=== PATIENT | male | born 1960 | race Caucasian/White ===

== ENCOUNTER 2018-03-13 08:28 | Emergency (ER) | payer BC ==
[~2018-03-13 08:28] MED LIST: ASPI-757 PO; CEPH500T7 PO; HYDR-4309 PO; SULF-198 PO; TOBR5DRO43 OP
--- NOTE | 2018-03-13 08:36 | ER Report ---
History and Physical Time Seen By MD: 08:35 HPI/ROS CHIEF COMPLAINT: Left knee injury HISTORY OF PRESENT ILLNESS: Patient is a 57-year-old male who presents to the emergency department for evaluation of left knee injury. Patient was tending to a cold when the cold kind kicked into the left knee. Patient was wearing jeans but did receive a laceration over the left kneecap area. Patient does have some discomfort with ambulation however is able to walk is able to fully extend the leg against gravity. Patient is unsure of last tetanus status. Patient has no other injuries at this time. REVIEW OF SYSTEMS: Respiratory: No cough, no dyspnea. Cardiovascular: No chest pain, no palpitations. Gastrointestinal: No vomiting, no abdominal pain. Musculoskeletal: No back pain. Left knee injury Allergies: Coded Allergies: No Known Drug Allergies (Unverified , 03/13/18) Home Meds Active Scripts Cephalexin 500 Mg Tab (KEFLEX 500 MG TAB) 500 Mg Tablet, 500 MG PO Q6H, #28 TAB 0 Refills TAKE ONE TABLET BY MOUTH EVERY SIX HOURS Prov:GIBRAN JETER MD 03/13/18 Discontinued Reported Medications Aspirin (ASPIRIN) 325 Mg Tablet, 3 TAB PO Q4-6H Y for PAIN, TAB 11/02/16 Discontinued Scripts Sulfamethoxazole/Trimet 800-160 Mg Tab (BACTRIM DS TABLET) 1 Each Tablet, 1 TAB PO Q12H, #20 TAB Prov:PHI EDEN PA-C 06/20/17 Cephalexin 500 Mg Tab (KEFLEX 500 MG TAB) 500 Mg Tablet, 500 MG PO Q6H, #40 TAB Prov:PHI EDEN PA-C 06/20/17 Hydrocodone Bit/Acetaminophen (NORCO 5-325 TABLET) 1 Each Tablet, 1 EACH PO Q4- 6H Y for PAIN, #20 TAB Prov:JULIO VAZQUEZ 11/02/16 Past Medical/Surgical History Noncontributory Hx Smoking: No Hx Substance Use Disorder: No Hx Alcohol Use: No Constitutional Vital Sign - Last 24 Hours 03/13/18 03/13/18 08:32 10:01 Temp 98.1 Pulse 71 74 Resp 16 B/P (MAP) 166/110 151/113 (126) Pulse Ox 91 91 O2 Delivery Room Air Room Air Intake and Output 03/13/18 03/13/18 03/14/18 15:00 23:00 07:00 Intake Total 1000 ml Balance 1000 ml Physical Exam General appearance: Alert no distress. Right knee: There is no significant swelling. There is no effusion. There is no obvious deformity of the knee. There is minimal tenderness to the patella. The joint is stable with no comparable ligamentous laxity to the knee. There is no tenderness proximal or distal to the knee. Neurologic exam: The patient has normal sensation distal to the injury. Vascular exam: Normal pulses and capillary refill in the foot Skin: Patient with a 1.5 cm linear and horizontal laceration over the left patella. There does not appear to be any gross contamination of the wound. DIFFERENTIAL DIAGNOSIS: After history and physical exam differential diagnosis was considered for knee injury including sprain, fracture, meniscus injury and soft tissue injury. Medical Decision Making ED Course/Re-evaluation ED Course 03/13/2018 9:53:49 am Procedure: Laceration repair. Verbal consent was obtained from the patient. The 1.5 cm laceration on the left knee was anesthetized in the usual fashion. The wound was cleansed, draped and explored to its base with a gloved finger. Wound was irrigated with 1000 mL of sterile saline under high pressure There were no deep structures involved. No tendon injury was identified. There did not appear to be any gross contamination of the wound. The wound was repaired with 3 single interrupted 4- 0 nylon sutures. The wound repair was simple. The procedure was performed by myself. Decision to Disposition Date: Mar 13, 2018 Decision to Disposition Time: 09:54 Depart Departure Latest Vital Signs Vital Signs Date Time Temp Pulse Resp B/P (MAP) Pulse Ox O2 Delivery O2 Flow Rate FiO2 03/13/18 10:01 74 151/113 (126) 91 Room Air 03/13/18 08:32 98.1 16 Impression: Primary Impression: Knee laceration Condition: Improved Disposition: HOME OR SELF-CARE Referrals: MICA FRENCH (PCP) New Scripts Cephalexin 500 Mg Tab (KEFLEX 500 MG TAB) 500 Mg Tablet 500 MG PO Q6H, #28 TAB 0 Refills TAKE ONE TABLET BY MOUTH EVERY SIX HOURS Prov: GIBRAN JETER MD 03/13/18 Patient Instructions: Laceration (DC) Additional Instructions: Return to your primary care provider in 10-14 days for suture removal Problem Qualifiers Primary Impression: Knee laceration Encounter type: initial encounter Laterality: left Qualified Codes: S81.012A - Laceration without foreign body, left knee, initial encounter GIBRAN JETER MD Mar 13, 2018 08:36
[2018-03-13] MEDS ORDERED: NS(*) 0.9% 1000 ML BAG 1,000 ML IV ONE (08:40)
[2018-03-13] MEDS ORDERED: DIPHTH/TETANUS/ACEL. PERTUSSIS IM ONLY ONE (08:40)
[2018-03-13] MEDS ORDERED: CEPHALEXIN MONO 500 MG CAP PO ONE (08:40)
--- NOTE | 2018-03-13 09:52 | RADIOLOGY IMAGING REPORT ---
FACILITY: [facility] PATIENT NAME: Valeriy Arvizu : 1960 MR: [id number] V: [id number] EXAM DATE: ORDERING PHYSICIAN: GIBRAN JETER TECHNOLOGIST: Location: [facility] Patient: Valeriy Arvizu : 1960 Visit/Account:[id number] Date of Sevice: 03/13/2018 KNEE 4 VIEW LEFT Given history: trauma. Kicked by horse. COMPARISON STUDIES: NONE FINDINGS: Osseous structures: Intact without evidence of fracture . Joints: Tiny osteophytes seen in the medial femoral patellar compartment and there is a small osseo us excrescence seen in the tibial plateau likely related to mild arthropathy. Soft tissues: There is some soft tissue swelling seen anterior to the knee which is covered with ba ndage material at the site of trauma. IMPRESSION: Negative for fracture. Mild Soft tissue swelling anterior to the knee Report Dictated By: Issa Moore MD at 03/13/2018 9:47 AM Report E-Signed By: Issa Moore MD at 03/13/2018 9:49 AM WSN:[id number]
[2018-03-13] MEDS ORDERED: CEPH500T7 PO (09:59)
[2018-03-13 10:01] VITALS: BP 151/113
== END 2018-03-13 10:05 | disposition home or self-care (01) ==
LOC: ER 09:03
DX: S81.012A Laceration without foreign body, left knee, initial encounter (principal); W55.12XA Struck by horse, initial encounter
CPT/HCPCS: 12001; 73564; 90471; 90715; 99283; J7030

== ENCOUNTER → 2019-04-20 | Outpatient (CLI) | payer BC ==
[~2019-04-20] MED LIST changes: -HYDR-4309 PO; +HYDR-653 PO
[2019-04-20 12:01] LABS: PLATELET COUNT, AUTOMATED 207 K/uL (150-450)
--- NOTE | 2019-04-20 13:27 | RADIOLOGY IMAGING REPORT ---
[place] [facility] [place] NAME[place] Valeriy Arvizu : 1960 MR: [id number] V: [id number] EXAM DATE: ORDERING PHYSICIAN: MICA FRENCH TECHNOLOGIST: Location: Patient: Valeriy Arvizu : 1960 Visit/Account:[id number] Date of Sevice: 04/20/2019 EXAMINATION: PA and Lateral Chest 04/20/2019 12:07 PM HISTORY: Cough, fatigue, hoarseness, shortness of breath COMPARISON: None FINDINGS: Cardiomediastinal contours: Normal Lungs and pleura: Normal Bones/soft tissues: Normal IMPRESSION: No acute cardiopulmonary abnormality. Report Dictated By: Jerrod Xavier MD at 04/20/2019 1:21 PM Report E-Signed By: Jerrod Xavier MD at 04/20/2019 1:22 PM WSN:[email or web address]
--- NOTE | 2019-04-21 11:10 | EKG ---
FACILITY: PATIENT NAME: CAROLYN JAVIER : [id number] MR: [id number] V: [id number] EXAM DATE: ORDERING PHYSICIAN: MICA FRENCH TECHNOLOGIST: BOLIVAR Test Reason : FATIGUE Blood Pressure : / mmHG Vent. Rate : 069 BPM Atrial Rate : 069 BPM P-R Int : 188 ms QRS Dur : 088 ms QT Int : 388 ms P-R-T Axes : 054 049 006 degrees QTc Int : 415 ms Normal sinus rhythm Normal ECG When compared with ECG of 09-NOV-2016 16:01, T wave inversion now evident in Inferior leads Confirmed by CHILO FAN ([id number]) on 04/21/2019 4:01:44 PM Referred By: GILLIAN Confirmed By:CHILO FAN
== END ==
LOC: LAB 11:40
PROVIDERS: ATTEND Nurse Practitioner Family
DX: I10 Essential (primary) hypertension (principal); R53.83 Other fatigue; R05 Cough
CPT/HCPCS: 36415; 71046; 82306; 82465; 83718; 84478; 85025; 93005

== ENCOUNTER → 2019-06-20 | Outpatient (CLI) | payer BC | LOC: RESP 13:02 | PROVIDERS: ATTEND Nurse Practitioner Family | DX: R06.02 Shortness of breath (principal); R06.00 Dyspnea, unspecified | CPT/HCPCS: 94060; 94726; 94729 ==